=== PATIENT | female | born 1950 | race Caucasian/White ===

== ENCOUNTER 2018-08-14 16:14 | Inpatient (IN) ==
[2018-08-14] MEDS ORDERED: 0.9 % Sodium Chloride 1,000 ML ONE (16:35)
[2018-08-14] MEDS ORDERED: Isovue-370 500 ML BOTTLE IVP ONE (16:35)
[2018-08-14] MEDS ORDERED: 0.9 % Sodium Chloride 1,000 ML IVC ONE (16:35)
--- NOTE | 2018-08-14 16:38 | Emergency Department Note ---
Disposition Clinical Impression: New onset a-fib Disposition: Admitted As Inpatient Condition: Fair Forms: ED Satisfaction Letter Time of Disposition: 20:54 SOB HPI - General Chief Complaint: ED Shortness of Breath/Dyspnea Stated Complaint: Positive Pneumothorax Time Seen by Provider: 08/14/18 16:26 Source: patient Mode of arrival: wheelchair Limitations: no limitations Nursing Notes Reviewed: Yes Vital Signs Reviewed: Yes - History of Present Illness 68-year-old female with months of shortness of breath seen at her nurse practitioner today who had her get a chest x-ray, at this facility, and they called and told her that it looked like she had a collapsed lung and sent her to the emergency department for further treatment. Chest x-ray from earlier shows some multifocal discoid atelectasis, but does not show any pneumothorax. Patient presented to the emergency department with tachycardia, tachypnea, dyspnea, and there was concern for pneumothorax, however bilateral breath sounds were appreciated at the bedside. Repeat chest x-ray does not demonstrate pneum othorax. Patient is still tachycardic, has never been diagnosed with atrial fibrillation, however has been in the process of being worked up by cardiology for this. Patient was started on Levaquin today because of concern for pneumonia. Patient reports feeling intermittently short of breath since of last year, she also reports a cough that is occasionally productive of yellow sputum. She reports that she was both febrile and cold around , however she has not felt this way since then. She did take 1 dose of Levaquin. She takes no other daily medications, and has no known medical problems. - Related Data Home Medications Medication Instructions Recorded Confirmed Levofloxacin [Levaquin] 750 mg PO DAILY 08/14/18 08/14/18 Allergies Allergy/AdvReac Type Severity Reaction Status Date / Time No Known Allergies Allergy Verified 08/14/18 16:36 Review of Systems: In addition to that documented in the HPI above, the additional ROS was obtained: Constitutional: Denies fevers or chills Eyes: Denies vision changes ENMT: Denies sore throat CV: Denies chest pain Resp: reports SOB since GI: Denies vomiting or diarrhea : Denies painful urination MSK: Denies recent trauma Skin: Denies new rashes Neuro: Denies new numbness or tingling or weakness Endocrine: Denies unexpected weight loss Heme: Denies bleeding disorders Past Medical History - Past Medical History Attestation: Yes The following information was validated with the patient. Medical history: Reports: no medical history - Social History Smoking Status: Never smoker Smokeless Tobacco Status: No Alcohol use: Reports: none Drug use: Reports: none Physical Exam General: Tachypneic. Anxious. Well developed, well nourished. Head: atraumatic, normocephalic. ENT: No conjunctival injection, no scleral icterus. Oropharynx non- erythematous. mucous membranes moist. Neuro: No focal deficits, no speech deficit, no facial droop, mentating well. BUE/BLE Str 5/5. Pulm: Lungs diminished in right base, clear otherwise without rales/ronchi. Cardio: Irregularly irregular, tachycardic. Chest not tender to palpation. Abd: Soft, non-distended. Normoactive bowel sounds. Non-tender to palpation. No guarding. Non rigid. Extremities: Radial pulses 2+ marce, dorsalis pedis/posterior tibialis 2+ marce. Mild, non-pitting, marce LE edema. No cyanosis, clubbing. Skin: warm, dry, intact. No rashes. Psych: Appropriate mood and affect. Answers questions appropriately. Cooperative with exam. Course Vital Signs Temperature 97.3 F L 08/14/18 16:23 Pulse Rate 129 08/14/18 16:23 Respiratory Rate 27 08/14/18 16:23 Blood Pressure 196/130 08/14/18 16:23 O2 Sat by Pulse Oximetry 98 08/14/18 16:23 Temperature 97.3 F L 08/14/18 16:23 Pulse Rate 82 08/14/18 17:32 Respiratory Rate 27 08/14/18 16:23 Blood Pressure 159/112 08/14/18 17:32 O2 Sat by Pulse Oximetry 98 08/14/18 17:32 Oxygen Delivery Oxygen Delivery Room Air Shortness of Breath/Dyspnea - [facility] Narrative Medical decision making narrative: Patient's chest CTA showed evidence of diffuse ground glass opacities throughout her lung but no specific focal consolidation, and no PE. Given her lack of elevated WBC, lack of fevers, this is less likely pneumonia. She could benefit from pulmonary consultation. Pt was started on a cardizem drip while in the department after given a cardizem bolus. Her heart rate improved during the course of her treatment. Patient was admitted to hospitalist Dr. Granados, who agreed to accept her to his service. Patient was given an opportunity to ask questions at bedside and all of their concerns were addressed. Patient verbalized understanding and agreement with plan of care. Pt remained stable while in the department. - Medical Records Medical records reviewed: Yes I reviewed the patient's medical records. - Lab Data Lab results reviewed: Yes I reviewed the patient's lab results. Result diagrams: 08/14/18 16:29 08/14/18 16:29 Lab Results 08/14/18 08/14/18 08/14/18 Range/Units 16:29 16:29 16:29 WBC 10.5 (4.3-11.1) K/mcL RBC 5.66 H (3.82-4.97) M/mcL Hgb 16.0 H (11.5-15.4) g/dL Hct 50.6 H (35.3-44.9) % MCV 89.4 (83.0-100.0) fL MCH 28.3 (28.0-33.3) pg MCHC 31.6 (31.6-35.5) g/dL RDW 15.3 H (11.5-14.5) % Plt Count 236 (140-400) K/mcL MPV 12.2 (9.4-12.4) fL Immature Gran % 0.3 (0-4) % Seg Neutrophils % 81.0 % Lymphocytes % 12.7 % Monocytes % 5.1 % Eosinophils % 0.5 % Basophils % 0.4 % Neutrophils # 8.5 (1.6-8.9) K/mcL Lymphocytes # 1.3 (0.6-4.6) K/mcL Monocytes # 0.5 (0.0-1.3) K/mcL Eosinophils # 0.1 (0.0-0.6) K/mcL Basophils # 0.0 (0.0-0.2) K/mcL Sodium 144 (136-145) mEq/L Potassium 3.6 (3.5-5.1) mEq/L Chloride 105 (98-107) mEq/L Carbon Dioxide 27 (23-29) mEq/L BUN 32 H (8-23) mg/dL Creatinine 1.00 (0.60-1.20) mg/dL Est GFR ( Amer) > 60 (> 60) Est GFR (Non-Af Amer) 55 L (> 60) BUN/Creatinine Ratio 32 H (6-26) Glucose 122 H (70-105) mg/dL Calculated Osmolality 306 H (280-300) Lactic Acid (0.5-2.2) mmol/L Calcium 9.3 (8.6-10.3) mg/dL Magnesium 1.9 (1.6-2.6) mg/dL Troponin I 0.13 H* (< 0.04) ng/mL B-Natriuretic Peptide 501 H (Less than 100) pg/mL TSH 3.864 (0.340-5.600) mcIU/mL 08/14/18 Range/Units 16:54 WBC (4.3-11.1) K/mcL RBC (3.82-4.97) M/mcL Hgb (11.5-15.4) g/dL Hct (35.3-44.9) % MCV (83.0-100.0) fL MCH (28.0-33.3) pg MCHC (31.6-35.5) g/dL RDW (11.5-14.5) % Plt Count (140-400) K/mcL MPV (9.4-12.4) fL Immature Gran % (0-4) % Seg Neutrophils % % Lymphocytes % % Monocytes % % Eosinophils % % Basophils % % Neutrophils # (1.6-8.9) K/mcL Lymphocytes # (0.6-4.6) K/mcL Monocytes # (0.0-1.3) K/mcL Eosinophils # (0.0-0.6) K/mcL Basophils # (0.0-0.2) K/mcL Sodium (136-145) mEq/L Potassium (3.5-5.1) mEq/L Chloride (98-107) mEq/L Carbon Dioxide (23-29) mEq/L BUN (8-23) mg/dL Creatinine (0.60-1.20) mg/dL Est GFR ( Amer) (> 60) Est GFR (Non-Af Amer) (> 60) BUN/Creatinine Ratio (6-26) Glucose (70-105) mg/dL Calculated Osmolality (280-300) Lactic Acid 1.0 (0.5-2.2) mmol/L Calcium (8.6-10.3) mg/dL Magnesium (1.6-2.6) mg/dL Troponin I (< 0.04) ng/mL B-Natriuretic Peptide (Less than 100) pg/mL TSH (0.340-5.600) mcIU/mL - Radiology Data Radiology results reviewed: Yes I reviewed the patient's radiology results. Chest X-Ray 08/14/18 00:00 IMPRESSION: Left pleural effusion. Atelectasis or infiltrate in the left lung base. No change from prior. D/ / 08/14/2018 17:06:10 Brianna Seth MD / addie Interpreting Provider: Brianna Seth MD Chest CTA 08/14/18 16:35 IMPRESSION: No evidence of pulmonary embolism. Patchy ground-glass opacities throughout the lungs bilaterally. Differential considerations include normal expiration, common opportunistic infections, chronic interstitial disease, etc. D/ / Jesse Ramirez MD / Jesse Ramirez MD Interpreting Provider: Jesse Ramirez MD - EKG Data EKG attestation: Yes I reviewed and interpreted this EKG. EKG results narrative: 1626: Heart rate 136 rhythm atrial fibrillation, axis normal. QRS 86, QTC 447. No evidence of clinically significant ST elevation or depression. LVH criteria met. No WPW, no Brugada syndrome. 1850: Heart rate 100, rhythm atrial fibrillation, axis normal. QRS 80, QTC 447. No evidence of clinically significant ST elevation or depression. LVH. No Brugada, no WPW. Attestation Statement - Attestation Attestation: Resident Attestation: I examined this patient and my medical decision making was reviewed with the Resident Physician. I agree with the documented findings, disposition and treatment plan as described except to the extent set forth below. We independently had [id number] contact with the patient. Patient presents emergency department today for evaluation of possible pneumothorax. Patient with intermittent symptoms of respiratory distress. Worse today. Seen by nurse practitioner with concern for abnormal x-ray. Patient presents emergency department significant only tachycardic at 140, hypertensive at 190 systolic and mildly diaphoretic. Medical records reviewed. No pneumothorax is seen on prior x-ray. Bedside x-ray was performed and was found to be negative for pneumothorax. Bedside ultrasound performed by Dr. Soriano with me at bedside was negative for pneumothorax. Patient's EKG does show significant atrial fibrillation without any ST elevations. Patient will undergo further evaluation for A. fib RVR including CT PE study.
[2018-08-14 17:07] LABS: Basophils % 0.4 %; Eosinophils # 0.1 K/mcL (0.0-0.6); Eosinophils % 0.5 %; Hematocrit 50.6 % (35.3-44.9); Immature Granulocytes % 0.3 % (0-4); Lymphocytes # 1.3 K/mcL (0.6-4.6); Lymphocytes % 12.7 %; Mean Corpuscular HGB Conc 31.6 g/dL (31.6-35.5); Mean Corpuscular Hemoglobin 28.3 pg (28.0-33.3); Mean Corpuscular Volume 89.4 fL (83.0-100.0); Mean Platelet Volume 12.2 fL (9.4-12.4); Monocytes # 0.5 K/mcL (0.0-1.3); Monocytes % 5.1 %; Neutrophils # 8.5 K/mcL (1.6-8.9); Platelet Count 236 K/mcL (140-400); Red Blood Count 5.66 M/mcL (3.82-4.97); Red Cell Distribution Width 15.3 % (11.5-14.5)
[2018-08-14 17:36] LABS: Troponin I 0.13 ng/mL (< 0.04)
[2018-08-14 17:49] LABS: BUN/Creatinine Ratio 32 (6-26); Blood Urea Nitrogen 32 mg/dL (8-23); Calcium 9.3 mg/dL (8.6-10.3); Carbon Dioxide 27 mEq/L (23-29); Chloride 105 mEq/L (98-107); Glucose 122 mg/dL (70-105); Magnesium 1.9 mg/dL (1.6-2.6); Osmolality,Calculated 306 (280-300); Potassium 3.6 mEq/L (3.5-5.1); Sodium 144 mEq/L (136-145); eGFR For Non-African Americans 55 (> 60)
[2018-08-14 18:10] LABS: Thyroid Stimulating Hormone 3.864 mcIU/mL (0.340-5.600)
[2018-08-14] MEDS ORDERED: Aspirin 81 MG TAB.CHEW PO ONE (20:00)
[2018-08-14] MEDS ORDERED: Naloxone 0.4 MG/ML INJ IVP PRN (21:41)
--- NOTE | 2018-08-14 21:52 | Internal Med History&Physical ---
<Sanjana Costello E - Last Filed: 08/14/18 22:53> Date of Encounter: 08/14/18 Time of Encounter: 20:15 Internal Medicine - H&P: HPI Chief complaint: Shortness of breath Admitted From: Home Plans for Post Hospital Care: Home History of present illness: Ms. Huntley is a 68 year old female with history of hypertension She was sent to the ER following a nurse practitioner at urgent care totaling her that she had a possible pneumothorax on chest x-ray from today. Patient states she has been feeling short of breath, cough, yellow sputum production since [place] time. She stated that she has been feeling very fatigued. She has been on one round of azithromycin for possible pneumonia and was started on Levaquin today for possible pneumonia. She states she has not been feverish or chilled, does state that she has had some back discomfort between her shoulder blades last few days it does not radiate anywhere and is just a mild ache. She denies any abdominal pain nausea, vomiting, diarrhea, lightheadedness/dizziness. Upon presentation to the ED she received a second chest x-ray which showed a left pleural effusion, atelectasis or infiltrate in the left lung base. She was also given a chest CTA showed no evidence of PE, patchy groundglass opacities throughout the lung bilaterally. EKG showed A. fib RVR and patient was started on Cardizem drip with Cardizem bolus, second EKG showed decreased rate but still abnormal rhythm Family history: Motherbreast cancer, heart disease fatherheart disease Social history: Never smoker, denies all all and drug use Labs on admission so hemoglobin of 16 and hematocrit of 50.6. BUN 32, creatinine 1, GFR 55. Was close of 122, troponin of 0.13, BNP of 501. Patient will be admitted to the hospitalist service for continued Cardizem drip for rate control of A. fib RVR, increased troponins, possible community-acquired pneumonia. Past Med Surg Social Fam HX - Past Medical History Medical history: no medical history - Social History Smoking Status: Never smoker Smokeless Tobacco Status: No Alcohol use: none Drug use: none Internal Medicine - H&P: Meds Levofloxacin [Levaquin] 750 mg PO DAILY 08/14/18 [History] Allergy/AdvReac Type Severity Reaction Status Date / Time No Known Allergies Allergy Verified 08/14/18 16:36 All Systems PM: A 10-system review of systems was performed and is negative for pertinent findings except as documented above in the HPI. - Constitutional Constitutional: fatigue, no anorexia, no chills, no fever(s) - EENT Eyes: no change in vision Nose, mouth and throat: no nasal congestion, no nasal discharge, no sinus pre ssure, no sore throat - Cardiovascular Cardiovascular ROS IM: irregular heart rhythm (Racing heartbeat), no chest pain, no lightheadedness, no palpitations - Respiratory Respiratory: cough, wheezing, chest congestion, excessive phlegm production, change in phlegm color (Yellow) - Gastrointestinal Gastrointestinal: no constipation, no diarrhea, no nausea, no vomiting - Genitourinary Genitourinary: no urinary frequency, no urinary hesitancy, no urinary urgency - Musculoskeletal Musculoskeletal ROS IM: back pain (Just below shoulder blades, dull aching pain) - Integumentary Integumentary IM: no new lesions, no pruritus, no rash - Neurological Neurological ROS: no disequilibrium, no dizziness, no focal weakness, no numbne ss - Constitutional Vitals: Temp Pulse Resp BP Pulse Ox 97.3 F L 82 27 159/112 98 08/14/18 16:23 08/14/18 17:32 08/14/18 16:23 08/14/18 17:32 08/14/18 17:32 Exam: General: A0 3, noted acute distress, answers questions appropriately Head: normocephalic, atraumatic Eyes: ZANE, no icterus Mouth: Mucous membranes moist Neck: Trachea midline, no lymphadenopathy Cardio: RRR, no mumurs, rubs, or gallops Respiratory: Diffuse wheezing throughout bilateral lung tran, no rhonchi or rales Abd: normal bowel sounds, no gaurding or rigidity Extremties: no peda edema, pulses equal bilaterally, warm Skin: warm, dry, intact Internal Med - H&P Results - Labs CBC & Chem 7: 08/14/18 16:29 08/14/18 16:29 Labs: Short CBC 08/14/18 Range/Units 16:29 WBC 10.5 (4.3-11.1) K/mcL Hgb 16.0 H (11.5-15.4) g/dL Hct 50.6 H (35.3-44.9) % Plt Count 236 (140-400) K/mcL Neutrophils # 8.5 (1.6-8.9) K/mcL BMP 08/14/18 16:29 Sodium 144 Potassium 3.6 Chloride 105 Carbon Dioxide 27 BUN 32 H Creatinine 1.00 Glucose 122 H Calcium 9.3 Cardiac Enzymes 08/14/18 Range/Units 16:29 Troponin I 0.13 H* (< 0.04) ng/mL - Impressions ITS Impressions Chest X-Ray 08/14/18 00:00 IMPRESSION: Left pleural effusion. Atelectasis or infiltrate in the left lung base. No change from prior. D/ / 08/14/2018 17:06:10 Brianna Seth MD / addie Interpreting Provider: Brianna Seth MD Chest CTA 08/14/18 16:35 IMPRESSION: No evidence of pulmonary embolism. Patchy ground-glass opacities throughout the lungs bilaterally. Differential considerations include normal expiration, common opportunistic infections, chronic interstitial disease, etc. D/ / Jesse Ramirez MD / Jesse Ramirez MD Interpreting Provider: Jesse Ramirez MD - Assessment and Plan (1) New onset a-fib Current Visit: Yes Status: Acute Assessment and plan: Patient found to have new onset A. fib RVR Cardizem drip started Cardiology has been consulted Patient placed on heparin drip for anticoagulation (2) Hypertensive urgency Current Visit: Yes Status: Acute Assessment and plan: Patient's blood pressures on admission 174/121 Patient has known history of hypertension though she states that she is not on any current medications and does not believe it is typically this high IV hydralazine given Patient also on Cardizem drip which should help with blood pressure Continue to monitor [place] hypertension medications as needed (3) Shortness of breath Current Visit: Yes Status: Acute Assessment and plan: Likely secondary to A. fib RVR versus merely acquired pneumonia Please see treatment according to assessment and plan for A. fib RVR and pneumonia (4) Community acquired pneumonia Current Visit: Yes Status: Acute Assessment and plan: Patient has increased. Reduction that is yellow Patient also notes a cough. Patient has diffuse wheezing throughout both lung tran and on chest CT a shows patchy groundglass opacities throughout the lungs bilaterally Continue Levaquin Blood cultures, sputum cultures ordered Xopenex for wheezing Qualifiers: Laterality: unspecified laterality Qualified Code(s): J18.9 - Pneumonia, unspecified organism (5) Elevated troponin Current Visit: Yes Status: Acute Assessment and plan: Likely due to demand ischemia Troponin on admission 0.13 Continue to follow troponins every 6 EKG did not show any ischemic changes patient is in A. fib RVR (6) DVT prophylaxis Current Visit: Yes Status: Acute Assessment and plan: Heparin drip - Time Spent With Patient Total time spent is greater than 50% in coordination of care (as documented) at patient's floor/unit and/or counseling patient: <Dane Granados Renata - Last Filed: 08/15/18 06:54> Date of Encounter: 08/15/18 Internal Medicine - H&P: HPI History of present illness: Ms. Huntley is a 68 year old female Past Med Surg Social Fam HX - Family History Father Living Status: Hx Family Cardiac Disorders: Yes Mother Living Status: Hx Family Cancer: Yes All Systems PM: A 10-system review of systems was performed and is negative for pertinent findings except as documented above in the HPI. - Constitutional Vitals: Temp Pulse Resp BP Pulse Ox 97.6 F 83 17 152/90 92 08/15/18 04:12 08/15/18 04:12 08/15/18 04:12 08/15/18 06:04 08/15/18 04:12 Internal Med - H&P Results - Labs CBC & Chem 7: 08/15/18 01:53 08/15/18 00:46 Labs: Short CBC 08/14/18 08/15/18 Range/Units 16:29 01:53 WBC 10.5 8.9 (4.3-11.1) K/mcL Hgb 16.0 H 14.4 D (11.5-15.4) g/dL Hct 50.6 H 45.3 H (35.3-44.9) % Plt Count 236 200 (140-400) K/mcL Neutrophils # 8.5 6.4 (1.6-8.9) K/mcL BMP 08/14/18 08/15/18 16:29 00:46 Sodium 144 142 Potassium 3.6 3.4 L Chloride 105 107 Carbon Dioxide 27 25 BUN 32 H 30 H Creatinine 1.00 0.85 Glucose 122 H 116 H Calcium 9.3 8.7 Cardiac Enzymes 08/14/18 08/14/18 08/15/18 Range/Units 16:29 22:47 05:37 Troponin I 0.13 H* 0.14 H* 0.13 H* (< 0.04) ng/mL Liver Function 08/15/18 Range/Units 00:46 Total Bilirubin 0.6 (0.3-1.0) mg/dL AST 16 (13-39) Units/L ALT 19 (7-52) Units/L Alkaline Phosphatase 58 (34-104) Units/L Albumin 3.8 (3.5-5.7) g/dL - Impressions ITS Impressions Chest X-Ray 08/14/18 00:00 IMPRESSION: Left pleural effusion. Atelectasis or infiltrate in the left lung base. No change from prior. D/ / 08/14/2018 17:06:10 Brianna Seth MD / addie Interpreting Provider: Brianna Seth MD Chest CTA 08/14/18 16:35 IMPRESSION: No evidence of pulmonary embolism. Patchy ground-glass opacities throughout the lungs bilaterally. Differential considerations include normal expiration, common opportunistic infections, chronic interstitial disease, etc. D/ / Jesse Ramirez MD / Jesse Ramirez MD Interpreting Provider: Jesse Ramirez MD - Time Spent With Patient Total time spent is greater than 50% in coordination of care (as documented) at patient's floor/unit and/or counseling patient: - Attending Attestation I saw and evaluated the patient. I reviewed the residents note, performed my own physical examination and agree with findings and plan as documented in the residents note. Patient seen and examined on 08/15/18. Patient found to be in atrial fibrillation, no known previous history. Rate controlled on cardizem. Patient's blood pressure improved as well. Cardiology to see today, will get echocardiogram as well. Follow up cardiology recommendations.
[2018-08-14] MEDS ORDERED: *HR* Heparin 5,000 UNIT/ML VIAL IVP ONE (23:12)
[2018-08-14] MEDS ORDERED: *HR* Heparin 5,000 UNIT/ML VIAL IVP PRN ×2 (23:12)
[2018-08-14] MEDS ORDERED: Levalbuterol Neb 0.63 MG/3 ML IH PRN (23:19)
[2018-08-15] MEDS: Heparin 25,000 UNIT/250 ML D5W 25,000 UNIT/250 ML IV.SOLN IVC SCH (00:53)
[2018-08-15 01:22] LABS: Heparin anti-factor XA UFH 0.04 IU/mL (0.30-0.70); INR 1.2; Prothrombin Time 13.5 Seconds (9.4-12.1)
[2018-08-15 01:42] LABS: Alanine Aminotransferase 19 Units/L (7-52); Albumin 3.8 g/dL (3.5-5.7); Albumin/Globulin Ratio 1.6 (1.1-2.2); Alkaline Phosphatase 58 Units/L (34-104); Aspartate Amino Transferase 16 Units/L (13-39); BUN/Creatinine Ratio 35 (6-26); Bilirubin,Total 0.6 mg/dL (0.3-1.0); Blood Urea Nitrogen 30 mg/dL (8-23); Calcium 8.7 mg/dL (8.6-10.3); Carbon Dioxide 25 mEq/L (23-29); Chloride 107 mEq/L (98-107); Chol/HDL Ratio 4.1 (0-4.9); Cholesterol 202 mg/dL (< 200); Globulin 2.4 g/dL (2.4-3.5); Glucose 116 mg/dL (70-105); HDL Cholesterol 49 mg/dL (40-59); LDL Cholesterol,Calculated 140 mg/dL (0-99); Magnesium 1.8 mg/dL (1.6-2.6); Osmolality,Calculated 301 (280-300); Phosphorous 3.2 mg/dL (2.7-4.5); Potassium 3.4 mEq/L (3.5-5.1); Sodium 142 mEq/L (136-145); Total Protein 6.2 g/dL (6.4-8.9); Triglycerides 66 mg/dL (< 150); eGFR For Non-African Americans > 60 (> 60)
[2018-08-15 02:04] LABS: Basophils # 0.1 K/mcL (0.0-0.2); Basophils % 0.6 %; Eosinophils # 0.1 K/mcL (0.0-0.6); Eosinophils % 1.2 %; Hematocrit 45.3 % (35.3-44.9); Hemoglobin 14.4 g/dL (11.5-15.4); Immature Granulocytes % 0.2 % (0-4); Lymphocytes # 1.8 K/mcL (0.6-4.6); Lymphocytes % 20.4 %; Mean Corpuscular HGB Conc 31.8 g/dL (31.6-35.5); Mean Corpuscular Hemoglobin 28.2 pg (28.0-33.3); Mean Corpuscular Volume 88.8 fL (83.0-100.0); Mean Platelet Volume 12.3 fL (9.4-12.4); Monocytes # 0.5 K/mcL (0.0-1.3); Monocytes % 5.4 %; Neutrophils # 6.4 K/mcL (1.6-8.9); Platelet Count 200 K/mcL (140-400); Red Cell Distribution Width 15.4 % (11.5-14.5); Segmented Neutrophils % 72.2 %
[2018-08-15] MEDS: levoFLOXacin 750 MG TABLET PO SCH (09:56)
--- NOTE | 2018-08-15 10:08 | Electrocardiograph Report ---
[address] [place], [place] [address] Test Date: 2018-08-14 Pat Name: Angelica Huntley Department: [id number] Room: 2A33 Gender: F Ribbon Tier: : 1950 Requested By: Ligia Moura Order Number: [id number] Reading MD: Gab Ma Measurements Intervals [place] Rate: 136 P: [place]: QRS: -10 QRSD: 86 T: 95 QT: 297 QTc: 447 Interpretive Statements Atrial fibrillation Probable LVH with secondary repol abnrm Inferior infarct, old Electronically Signed On 08-15-2018 10:07:16 EDT by Gab Ma
--- NOTE | 2018-08-15 10:15 | Electrocardiograph Report ---
[address] [place], [place] [address] Test Date: 2018-08-14 Pat Name: Angelica Huntley Department: [id number] Room: 2A33 Gender: F Global Regulatory Affairs Manager: : 1950 Requested By: Brock Stein Order Number: [id number] Reading MD: Gab Ma Measurements Intervals [place] Rate: 100 P: [place]: QRS: -17 QRSD: 80 T: 74 QT: 346 QTc: 447 Interpretive Statements Atrial fibrillation Abnormal R-wave progression, late transition Inferior infarct, old Electronically Signed On 08-15-2018 10:14:01 EDT by Gab Ma
--- NOTE | 2018-08-15 12:19 | Electrocardiograph Report ---
[place] [address] Test Date: 2018-08-15 Pat Name: Agnelica Huntley Department: 112 Room: 2A Gender: F Channel Rougher: : 1950 Requested By: Sanjana Costello Order Number: [id number] Reading MD: Gab Ma Measurements Intervals [place] Rate: 80 P: [place]: 0 QRS: -17 QRSD: 88 T: 91 QT: 366 QTc: 402 Interpretive Statements ATRIAL FIBRILLATION NONSPECIFIC T-WAVE ABNORMALITY Electronically Signed On 08-15-2018 12:17:13 EDT by Gab Ma
--- NOTE | 2018-08-15 13:40 | Cardiology Consult Note ---
Date of Encounter: 08/15/18 Time of Encounter: 10:30 Assessment and Plan (1) Community acquired pneumonia Current Visit: Yes Status: Acute Per cardiology: -Admitted with CAP. -Management per primary service. Qualifiers: Laterality: unspecified laterality Qualified Code(s): J18.9 - Pneumonia, un specified organism (2) New onset a-fib Current Visit: Yes Status: Acute Per cardiology: -New a.fib noted on admission. -Patient was started on cardizem drip. -HR currently controlled. -TSH, Mg within normal limits. Hypokalemic, replaced today. -TTE with LVEF 45-50%, global hypokinesis. Mild concentric left ventricular hypertrophy. Mild RV hypokinesis. Mild biatrial enlargement. Mild-moderate mitral regurgitation. Moderate tricuspid regurgitation. Mild pulmonic regurgitation.Mild pulmonary hypertension. -[id number] score 3 (age, gender, HTN). currently on heparin drip. -With mildly reduced LVEF, will start toprol. Wean cardizem drip to off. 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 -Currently on heparin drip for anticoagulation, recommend tape librarian anticoagulation. -Recommend outpateint sleep study and stress test. -Recommend repeating TTE in one month after rate control to reassess LVEF. -Of note, patient states she may be transferred to [place] to be closer to her family. Will continue to follow while patient at [facility]. (3) Elevated troponin Current Visit: Yes Status: Acute Per cardiology: -Mild, flat, adynamic troponins in the setting of PNA, a.fib RVR. -Denies chest pain. -No acute ischemic ECG changes. -TTE with mild LVEF reduction. -Demand ischemia. No cardiac rehab consult warranted. -Will start asa, statin, BB. -Recommend outpatient stress test. Discussion w patient/family: The assessment and plan as outlined above was discussed with the patient who expressed understanding and agreement. All questions were answered. Thank you for involving us in the care of your patient. Please call with any questions. Discussed and reviewed with . History of Present Illness Consult date: 08/14/18 Requesting physician: Sanjana Costello Consult reason: new a.fib Chief complaint: shortness of breath History of present illness: Ms. Huntley is a 68 year old female with a relevant past medical history of HTN, who presented to [facility] due to abormal chest x-ray. Patient states she has been dealing with recurrent bronchitis since April and has been on multiple antibiotics. Pateint states she was seen at urgent care and had chest x-ray done. Pateint was then recommended to come into the ER. Upon ER admission, ECG was completed and patient was noted to be in a.fib RVR. Patient denies chest pain. Denies palpitations or fluttering. Denies bleeding or blood loss. Reports shortness of breath. Past Med Surg Social Fam HX - Past Medical History Attestation: Yes The following information was validated with the patient. Source: patient Medical history: hypertension Psychiatric history: no psych history - Past Surgical History Surgical History: cholecystectomy Additional surgical history: 2 partial knee replacement - Social History Smoking Status: Never smoker Smokeless Tobacco Status: No Alcohol use: occasionally Drug use: none - Family History Father Living Status: Hx Family Cardiac Disorders: Yes Mother Living Status: Hx Family Cancer: Yes Medications and Allergies Levofloxacin [Levaquin] 750 mg PO DAILY 08/14/18 [History] Allergy/AdvReac Type Severity Reaction Status Date / Time No Known Allergies Allergy Verified 08/14/18 16:36 All Systems Review: The remainder of the systems were reviewed and are negative - Cardiovascular Cardiovascular: as per HPI, dyspnea at rest, dyspnea on exertion, rapid heart rate Physical Examination Vital Signs, Last 4 Hours Temp Pulse Resp BP Pulse Ox 08/15/18 13:23 148/90 08/15/18 10:55 98.2 F 84 16 156/105 94 08/15/18 10:39 18 93 08/15/18 10:08 94 General: Conversant, No Apparent Distress HEENT: Atraumatic, Normocephaly, Mucus Membranes Moist Neck: No JVD, Normal carotid pulses Cardiac: Normal S1 and S2, No Murmur, Other (Irregularly irregular) Lungs: Other (Lung sounds diminished throughout. ) Neuro: Alert and responsive, No focal deficits noted Abdomen: Soft, Non-Tender Skin: No rashes noted on visualized skin Musculoskeletal: No Chest Wall Tenderness Extremities: No Clubbing, No Cyanosis, No Edema, Normal Pulses Results 08/15/18 01:53 08/15/18 00:46 Lab Results Impressions Chest X-Ray 08/14/18 00:00 IMPRESSION: Left pleural effusion. Atelectasis or infiltrate in the left lung base. No change from prior. D/ / 08/14/2018 17:06:10 Brianna Seth MD / addie Interpreting Provider: Brianna Seth MD Chest CTA 08/14/18 16:35 IMPRESSION: No evidence of pulmonary embolism. Patchy ground-glass opacities throughout the lungs bilaterally. Differential considerations include normal expiration, common opportunistic infections, chronic interstitial disease, etc. D/ / Jesse Ramirez MD / Jesse Ramirez MD Interpreting Provider: Jesse Ramirez MD Echocardiogram 08/15/18 23:06 Impressions: LVEF 45-50%. Mild global left ventricular systolic dysfunction. Mild concentric left ventricular hypertrophy. Indeterminate diastolic function. Mild RV hypokinesis. Mild biatrial enlargement. Mild-moderate mitral regurgitation. Moderate tricuspid regurgitation. Mild pulmonic regurgitation. Mild pulmonary hypertension. Left Ventricular Wall Motion: Rest Echo Findings The apex, apical inferior, mid inferior, basal inferior, apical anterior, mid anterior, basal anterior, apical septal, mid inferior septal, basal inferior septal, apical lateral, mid anterior lateral, basal anterior lateral, mid anterior septal, mid inferior lateral, basal anterior septal and basal inferior lateral thompson were hypokinetic. Findings: Study Quality * Technically sub-optimal due to clinical status. ECG Findings * Atrial fibrillation. Left Ventricle * LVEF 45-50%. * Mild global left ventricular systolic dysfunction. * Normal LV chamber size. * Mild concentric left ventricular hypertrophy. * Indeterminate diastolic function. Right Ventricle * Normal right ventricular structure and mild hypokinesis. Left Atrium * Mildly dilated left atrium. Right Atrium * Mildly dilated right atrium. Interatrial Septum * Interatrial septum not well evaluated. * No evidence of PFO by color Doppler. Aortic Valve * Trileaflet aortic valve. * No aortic stenosis. * Trace aortic regurgitation. Mitral Valve * Normal mitral valve structure. * No mitral stenosis. * Mild-moderate mitral regurgitation. Tricuspid Valve * Normal tricuspid valve structure. * No tricuspid stenosis. * Moderate tricuspid regurgitation. * Estimated RVSP is 42 mmHg. * Estimated RA pressure is 15 mmHg. * Mild pulmonary hypertension. Pulmonic Valve * Pulmonic valve is not well visualized. * No pulmonic stenosis. * Mild pulmonic regurgitation. Aorta * Normally sized aortic root. Pericardium * The pericardium appears normal. IVC * < 50% respiratory change. * The IVC is dilated. Active Medications Heparin Sodium (Porcine) (Heparin) 7,900 unit 70 unit/kg (7900 unit) IVP Q6HR PRN PRN Reason: SEE COMMENTS Stop: 02/13/19 23:13 Heparin Sodium (Porcine) (Heparin) 3,900 unit 35 unit/kg (3900 unit) IVP Q6H PRN PRN Reason: SEE COMMENTS Stop: 02/13/19 23:13 Hydralazine HCl (Hydralazine) 10 mg IVP Q6HR PRN PRN Reason: systolic >150 Stop: 02/13/19 21:48 Diltiazem HCl 125 mg/ Sodium (Chloride) 125 mls @ 5 mls/hr IVC CONT [facility]; Protocol Stop: 02/13/19 16:46 Last Titration: 08/15/18 13:11 Dose: 2.5 mg/hr, 2.5 mls/hr Documented by: Heparin Sodium/Dextrose (Heparin 25,000 Unit/250 Ml D5w) 25,000 unit in 250 mls @ 15.749 mls/hr IVC .[id number] [facility]; Protocol Stop: 02/13/19 23:16 Last Titration: 08/15/18 10:47 Dose: 11.05 unit/kg/hr, 12.4 mls/hr Documented by: Levalbuterol HCl (Xopenex) 0.63 mg IH [id number] PRN PRN Reason: wheezing/shortness of breath Stop: 02/14/19 04:01 Last Admin: 08/15/18 10:38 Dose: 0.63 mg Documented by: Levofloxacin (Levaquin) 750 mg PO DAILY [facility] Stop: 08/27/18 09:01 Last Admin: 08/15/18 09:56 Dose: 750 mg Documented by: Metoprolol Succinate (Toprol Xl) 25 mg PO DAILY [facility] Stop: 02/14/19 13:31 Naloxone HCl (Narcan) 0.4 mg IVP Q2MPRN PRN PRN Reason: SEE COMMENTS Stop: 02/13/19 21:42 Laboratory Tests 08/14/18 08/14/18 08/14/18 16:29 16:29 22:47 Hgb Potassium Creatinine Magnesium Troponin I 0.13 H* 0.14 H* B-Natriuretic Peptide 501 H TSH 3.864 08/15/18 08/15/18 08/15/18 00:46 01:53 05:37 Hgb 14.4 D Potassium 3.4 L Creatinine 0.85 Magnesium 1.8 Troponin I 0.13 H* B-Natriuretic Peptide TSH - Imaging and Cardiology Chest Xray: report reviewed Echo: report reviewed - EKG Interpretation EKG results cardiology: personally reviewed (ECG with a.fib RVR, HR 123.), other (Telemetry reviewed with average HR previous 12 hours noted to be 81, a.fib. PVCs noted.) Consult Discharge Plan - Plan Referrals: Sirisha Delgado, PROPOSAL CONSULTANT [Primary Care Provider] -
[2018-08-15] MEDS ORDERED: Levalbuterol Neb 0.63 MG/3 ML IH PRN (13:59)
[2018-08-15] MEDS ORDERED: Furosemide 40 MG/4 ML VIAL IVP ONE (14:02)
--- NOTE | 2018-08-15 14:16 | Event Note ---
Date of Encounter: 08/15/18 Time of Encounter: 14:03 Patient was seen and examined at bedside. Reports that she continues to be somewhat out of breath however reports that is improved since admission. Denies any lung history or cardiac history. She has had no chest pain or palpitations since admission. All questions answered. Vital signs reviewed No acute distress, speaks in 5 board sentences. Does get out of breath at times. Obese Irregular rhythm, could not appreciate any murmurs Decreased breath sounds bilaterally secondary to body habitus, has crackles in the posterior lung tran, could not appreciate any wheezing. Alert and oriented 3, no focal deficit Moving all 4 extremities, could not appreciate any edema of the lower extremities, no calf tenderness. A/P: Ms. Huntley is a 68 year old female with a relevant past medical history of HTN, who presented to [facility] due to abormal chest x-ray an dwas found to be in AFib with RVR. first detected AFib: Was started on Cardizem drip will titrate off. Was started on metoprolol daily, TSH and magnesium within normal limits. Echocardiogram with EF of 45-50%. Chads last of 3 currently on heparin drip- discussed with cardiology and after reviewing the TTE they cleared her for NOAC after reviewing the TTE. will pitts check eliquis repeat TTE in one month after rate control to reassess LVEF Elevated troponin: most likley secondary to supply vs demand mismatch. continue asa, statin, BB. TTE with LVEF 45-50%, global hypokinesis. Mild concentric left ventricular hypertrophy. Mild RV hypokinesis. Mild biatrial enlargement. Mild-moderate mitral regurgitation. Moderate tricuspid regurgitation. Mild pulmonic regurgitation.Mild pulmonary hypertension. outpatient stress test. CAP: continue with levaquin, urine antigens, sputum cx ordered HTN: was started on BB, gave one dose of lasix, will continue to monitor BP and adjust medications DVT prophyalxis: on heparin drip code status : FULL CTA: No evidence of pulmonary embolism. Patchy ground-glass opacities throughout the lungs bilaterally. Differential considerations include normal expiration, common opportunistic infections, chronic interstitial disease, etc.
[2018-08-15] MEDS: Metoprolol XL (24 HR) Succ 25 MG TAB.ER.24H PO SCH (14:24)
[2018-08-15 18:52] LABS: Adenovirus Not Detected (Not Detect); Bordetella Pertussis Not Detected (Not Detect); Chlamydophila pneumoniae Not Detected (Not Detect); Coronavirus 229E Not Detected (Not Detect); Coronavirus HKU1 Not Detected (Not Detect); Coronavirus NL63 Not Detected (Not Detect); Coronavirus OC43 Not Detected (Not Detect); Human Metapneumovirus Not Detected (Not Detect); Human Rhinovirus/Enterovirus Not Detected (Not Detect); Influenza A Subtype 2009 H1 Not Detected (Not Detect); Influenza A Untypeable Not Detected (Not Detect); Influenza B Not Detected (Not Detect); Mycoplasma pneumoniae Not Detected (Not Detect); Parainfluenza Virus 1 Not Detected (Not Detect); Parainfluenza Virus 2 Not Detected (Not Detect); Parainfluenza Virus 3 Not Detected (Not Detect); Parainfluenza Virus 4 Not Detected (Not Detect); Respiratory Syncytial Virus Not Detected (Not Detect)
[2018-08-15] MEDS: Apixaban 5 MG TABLET PO SCH (20:34)
[2018-08-16] MEDS: Heparin 25,000 UNIT/250 ML D5W 25,000 UNIT/250 ML IV.SOLN IVC SCH (03:28)
[2018-08-16 06:10] LABS: Hematocrit 45.6 % (35.3-44.9); Hemoglobin 14.4 g/dL (11.5-15.4); Mean Corpuscular HGB Conc 31.6 g/dL (31.6-35.5); Mean Corpuscular Volume 88.7 fL (83.0-100.0); Mean Platelet Volume 12.1 fL (9.4-12.4); Platelet Count 188 K/mcL (140-400); Red Blood Count 5.14 M/mcL (3.82-4.97); Red Cell Distribution Width 15.5 % (11.5-14.5)
[2018-08-16 06:31] LABS: BUN/Creatinine Ratio 25 (6-26); Blood Urea Nitrogen 22 mg/dL (8-23); Calcium 9.3 mg/dL (8.6-10.3); Carbon Dioxide 28 mEq/L (23-29); Chloride 104 mEq/L (98-107); Glucose 105 mg/dL (70-105); Osmolality,Calculated 300 (280-300); Potassium 3.3 mEq/L (3.5-5.1); Sodium 143 mEq/L (136-145); eGFR For Non-African Americans > 60 (> 60)
[2018-08-16 06:41] LABS: Estimated Average Glucose 146 mg/dl; Hemoglobin A1C 6.7 %
--- NOTE | 2018-08-16 07:54 | Event Note ---
Date of Encounter: 08/16/18 Time of Encounter: 07:51 - Cardiology Event Note New onset a.fib RVR in the setting of pneumonia. Patient was intially started on cardizem drip, was started on oral BB. HR now controlled. Can continue to titrate BB if needed. TTE with LVEF 45-50%. Per , recommend repeat TTE in one month after rate control. [id number] score 3, patient was started on eliquis for anticoagulation. Recommend outpatient stress test and sleep study. Cardiology will sign off. Patient wishes to follow with outside cardiology, recommend close outpateint follow up.
[2018-08-16] MEDS ORDERED: Aspirin Enteric Coated 81 MG Tablet PO SCH (09:00)
[2018-08-16] MEDS ORDERED: Furosemide 40 MG TABLET PO SCH (09:00)
[2018-08-16] MEDS: levoFLOXacin 750 MG TABLET PO SCH (09:03)
[2018-08-16] MEDS: Metoprolol XL (24 HR) Succ 25 MG TAB.ER.24H PO SCH (09:04)
[2018-08-16] MEDS: Apixaban 5 MG TABLET PO SCH (09:04)
--- NOTE | 2018-08-16 10:36 | Discharge Summary ---
- NOTES TO OUTPATIENT PROVIDER Notes to Outpatient Provider: janell garibay with blood glucose levels, follow up with lipid panels in one month. needs TTE in one month and close follow up with cardiology Orders not resulted at time of discharge: Pending orders 08/14/18 23:03 Culture,Blood [BC] Stat Culture,Sputum with Gram Stain [RM] Routine Legionella Antigen [RM] Routine Streptococcal pneumoniae urin antigen [S. Pneumoniae Antigen] [RM] Routine Date of Encounter: 08/16/18 Time of Encounter: 09:00 - Discharge Diagnosis (1) New onset a-fib Priority: Primary Status: Acute (2) Metabolic syndrome Priority: Secondary Status: Acute (3) Obese Priority: Secondary Status: Acute Qualifiers: Obesity type: due to excess calories Obesity classification: adult class 2 (BMI 35 - 39.9) Body mass index: BMI 39.0-39.9 Qualified Code(s): E66.01 - Morbid (severe) obesity due to excess calories; Z68.39 - Body mass index (BMI) 39.0-39.9, adult (4) Community acquired pneumonia Priority: Secondary Status: Acute Qualifiers: Laterality: unspecified laterality Qualified Code(s): J18.9 - Pneumonia, unspecified organism (5) DVT prophylaxis Priority: Secondary Status: Acute (6) Elevated troponin Priority: Secondary Status: Acute (7) HTN (hypertension) Priority: Secondary Status: Acute Qualifiers: Hypertension type: essential hypertension Qualified Code(s): I10 - Essential (primary) hypertension (8) Hypertensive urgency Priority: Secondary Status: Acute (9) HLD (hyperlipidemia) Priority: Secondary Status: Acute Qualifiers: Hyperlipidemia type: pure hypercholesterolemia Qualified Code(s): E78.00 - Pure hypercholesterolemia, unspecified; E78.0 - Pure hypercholesterolemia (10) Newly diagnosed diabetes Priority: Secondary Status: Acute Hospital course: Ms. Huntley is a 68 year old female with history of HTN not taking medicatio ns"She was sent to the ER following a nurse practitioner at urgent care totaling her that she had a possible pneumothorax on chest x-ray from today. Patient states she has been feeling short of breath, cough, yellow sputum production since [place] time. She stated that she has been feeling very fatigued. She has been on one round of azithromycin for possible pneumonia and was started on Levaquin today for possible pneumonia. She states she has not been feverish or chilled, does state that she has had some back discomfort between her shoulder blades last few days it does not radiate anywhere and is just a mild ache. She denies any abdominal pain nausea, vomiting, diarrhea, lightheadedness/dizziness. Upon presentation to the ED she received a second chest x-ray which showed a left pleural effusion, atelectasis or infiltrate in the left lung base. She was also given a chest CTA showed no evidence of PE, patchy groundglass opacities throughout the lung bilaterally." EKG showed A. fib RVR and patient was started on Cardizem drip with Cardizem bolus, second EKG showed decreased rate but still abnormal rhythm. she was aso starte don heparin drip. cardiology was consulted and recommendation followed. she had below hospital course and below problems were addressed. first detected AFib: Was started on Cardizem drip will titrate off. Was started on metoprolol daily, TSH and magnesium within normal limits. Echocardiogram with EF of 45-50%. Chads vasc of 3 discussed with cardiology and after reviewing the TTE they cleared her for NOAC after reviewing the TTE and eliquis was recommended ( pitts checked for about $79- patinet is in agreement and 30 day supply was provided for the patient) repeat TTE in one month after rate control to reassess LVEF acute systolic CHF: was started on ASA, statin, BB and lasix along with ARB follow TTE in 1 month Elevated troponin: most likely secondary to supply vs demand mismatch. continue asa, statin, BB. TTE with LVEF 45-50%, global hypokinesis. Mild concentric left ventricular hypertrophy. Mild RV hypokinesis. Mild biatrial enlargement. Mild-moderate mitral regurgitation. Moderate tricuspid regurgitation. Mild pulmonic regurgitation.Mild pulmonary hypertension. outpatient stress test. CAP: continue with levaquin as prescribed as OP to finish course. respiratory viral panel negative, xopenex PRN newly diagnosed DM: A1c 6.7% metformin was prescribed she wishes to continue with her diet and exercise regimen and follow up as OP with her PCP for further management of her. uncontrolled HTN: was prescribed medications previosuly however not compliant. was started on BB, losartan and lasix with improvement in her BP. was told to keep log of her BP in lillian AM and QPM and take log to PCP for further adjustment of he medications metabolic syndrome: HLD, obesity and DM along with HTN Is counseled extensively on importance of diet, nutrition and fluid restriction. She reports that she will be compliant with medications. He wishes to follow-up with [facility] since her follows with them. Recommend outpatient stress test and sleep study. CTA: No evidence of pulmonary embolism. Patchy ground-glass opacities throughout the lungs bilaterally. Differential considerations include normal expiration, common opportunistic infections, chronic interstitial disease, etc. Discharge discussed with: patient, nurse, compensation consultant - Time Spent with Patient Total time spent providing and/or coordinating discharge services: Time spent: Greater than 30 minutes (40) - Discharge Medications Prescriptions: New Apixaban [Eliquis] 5 mg PO BID #60 tablet Aspirin Enteric Coated [Aspirin EC] 81 mg PO DAILY #30 tablet. Losartan [Cozaar] 50 mg PO DAILY #30 tablet metFORMIN [Glucophage] 500 mg PO 0800 #30 tablet Furosemide [Lasix] 40 mg PO DAILY #30 tablet Atorvastatin [Lipitor] 40 mg PO HS #30 tablet Metoprolol XL (24 HR) Succ [Toprol Xl] 25 mg PO DAILY #30 tab.er.24h Continued Levofloxacin [Levaquin] 750 mg PO DAILY Home Medications: Levofloxacin [Levaquin] 750 mg PO DAILY 08/14/18 [History] Apixaban [Eliquis] 5 mg PO BID #60 tablet 08/15/18 [Rx] Aspirin Enteric Coated [Aspirin EC] 81 mg PO DAILY #30 tablet. 08/16/18 [Rx] Atorvastatin [Lipitor] 40 mg PO HS #30 tablet 08/16/18 [Rx] Furosemide [Lasix] 40 mg PO DAILY #30 tablet 08/16/18 [Rx] Losartan [Cozaar] 50 mg PO DAILY #30 tablet 08/16/18 [Rx] Metoprolol XL (24 HR) Succ [Toprol Xl] 25 mg PO DAILY #30 tab.er.24h 08/16/18 [Rx] metFORMIN [Glucophage] 500 mg PO 0800 #30 tablet 08/16/18 [Rx] Allergies/Adverse Reactions: Allergy/AdvReac Type Severity Reaction Status Date / Time No Known Allergies Allergy Verified 08/14/18 16:36 Date of admission: 08/15/18 09:00 Primary care physician: Sirisha Delgado CNP Consults: 08/14/18 23:06 Consult to Cardiology [CONS] Routine Comment: Consulting Provider: Cardiology Viri Reason for Consult: new onset afib rvr Call Completed: No 08/15/18 08:34 Consult to Nurse Navigator [CONS] Routine Comment: pn - Constitutional Vitals: Temp Pulse Resp BP Pulse Ox 98.4 F 92 20 156/91 94 08/16/18 06:45 08/16/18 06:45 08/16/18 06:45 08/16/18 06:45 08/16/18 06:45 Exam: No acute distress, speaks in 5 board sentences. Does get out of breath at times. Obese NC/AT anicteric, conjunctiva WNL, PERRLA Irregular rhythm, could not appreciate any murmurs Decreased breath sounds bilaterally secondary to body habitus, has crackles in the posterior lung tran, could not appreciate any wheezing. Alert and oriented 3, no focal deficit Moving all 4 extremities, could not appreciate any edema of the lower extremities, no calf tenderness. skin: warm dry - Patient Status Disposition: Home, Self-Care Condition: Fair Functional capacity at discharge: independent ambulation Overall status at discharge: patient is progressing back to baseline - Discharge Instructions Instructions: Metoprolol (By mouth), Apixaban (By mouth), Atrial Fibrillation (DC), Diabetes Mellitus Type 2 in Adults (DC), Basic Carbohydrate Counting (DC) Follow Up With: Sirisha Delgado CNP [Primary Care Provider] - Jack Guaman MD [Partnered Physician] - - Diet and Activity Activity: increase activity as tolerated Diet: diabetic diet, low fat, low cholesterol, low salt diet
[2018-08-16 10:50] VITALS: BP 151/89
== END 2018-08-16 12:18 | disposition home or self-care (01) | DRG 193 ==
LOC: EMEROOARM 16:14 → 2ANU 16:14 → SUATTDRO 08-15 09:00
PROVIDERS: ADMIT Family Medicine; ATTEND Internal Medicine